=== PATIENT | female | born 1975 | race Caucasian/White ===

== ENCOUNTER 2017-03-27 11:52 | Emergency (ER) | payer OTHER ==
[2017-03-27 12:08] VITALS: BP 102/65
--- NOTE | 2017-03-27 12:21 | UC ---
Skin Complaint HPI - HPI Summary HPI Summary: contusion and redness on right hip after a bug bite, also c/o some fatigue and body aches----no know tick bite no evidence of tick bite ---no fevers - History of Current Complaint Chief Complaint: UCGeneralIllness Time Seen by Provider: 03/27/17 12:15 Stated Complaint: SKIN COMPLAINT-BULLSEYE Hx Obtained From: Patient Hx Last Menstrual Period: 03/23/17 ?: No Onset/Duration: Sudden Onset, Lasting Days - 7, Still Present Timing: Constant Onset Severity: Mild Current Severity: Mild Pain Intensity: 0 Location: Discrete Character: Pruritus Alleviating: Cold Compresses Associated Signs & Symptoms: Positive: Bruising - and itching Related History: Insect Bite/Sting - Allergy/Home Medications Allergies/Adverse Reactions: Allergies Allergy/AdvReac Type Severity Reaction Status Date / Time No Known Allergies Allergy Verified 03/27/17 12:08 Home Medications: Home Medications ALPRAZolam TAB* [Xanax TAB*] 0.25 mg PO TID PRN 03/27/17 [History Confirmed ] Citalopram TAB* [CeleXA TAB*] 20 mg PO DAILY 03/27/17 [History Confirmed ] busPIRone TAB* [Buspar TAB *] 15 mg PO DAILY 03/27/17 [History Confirmed ] Review of Systems Constitutional: Negative Skin: Negative Eyes: Negative ENT: Negative Respiratory: Negative Cardiovascular: Negative Gastrointestinal: Negative Genitourinary: Negative Motor: Negative Neurovascular: Negative Musculoskeletal: Negative Neurological: Negative Psychological: Negative All Other Systems Reviewed And Are Negative: Yes PMH/Surg Hx/FS Hx/Imm Hx Previously Healthy: No Psychological History: Anxiety - Surgical History Surgical History: None Surgery Procedure, Year, and Place: 06/22/11 Rt PARTIAL MMT--REPAIR RIGHT KNEE. HAMMER TOE ARTHROSCOPY-TOES 2-4 RIGHT - Family History Known Family History: Positive: None - Social History Occupation: Employed Full-time Lives: With Family Alcohol Use: Daily Alcohol Amount: 1 beer Substance Use Type: None Smoking Status (MU): Heavy Every Day Tobacco Smoker Type: Cigarettes Amount Used/How Often: 1 ppd Physical Exam Triage Information Reviewed: Yes Appearance: Well-Appearing, No Pain Distress, Well-Nourished Vital Signs: Initial Vital Signs Temp 98 F 03/27/17 12:03 Pulse 64 03/27/17 12:03 Resp 16 03/27/17 12:03 BP 102/65 03/27/17 12:03 Pulse Ox 99 03/27/17 12:03 Vital Signs Reviewed: Yes Eye Exam: Normal Eyes: Positive: Conjunctiva Clear ENT Exam: Normal ENT: Positive: Normal ENT inspection, Hearing grossly normal. Negative: Nasal congestion, Nasal drainage, Trismus, Muffled/hoarse voice Dental Exam: Normal Neck exam: Normal Neck: Positive: Supple, Nontender, No Lymphadenopathy Respiratory Exam: Normal Respiratory: Positive: Chest non-tender, Lungs clear, Normal breath sounds, No respiratory distress, No accessory muscle use Cardiovascular Exam: Normal Cardiovascular: Positive: RRR, No Murmur, Pulses Normal, Brisk Capillary Refill Musculoskeletal Exam: Normal Musculoskeletal: Positive: Strength Intact, ROM Intact, No Edema Neurological Exam: Normal Neurological: Positive: Alert, Muscle Tone Normal Psychological Exam: Normal Skin Exam: Other Skin: Positive: Other - bruising and erythema about 3 cm on right hip Course/Dx - Course Course Of Treatment: Lab studies, follow with pcp prn - Differential Diagnoses - Skin Complaint Differential Diagnoses: Abscess, Cellulitis, Impetigo - Diagnoses Provider Diagnoses: contusion, insect bite right hip Discharge - Discharge Plan Condition: Stable Disposition: HOME Patient Education Materials: Fatigue (ED) Referrals: Laly Cooley MD [Medical Doctor] - 1 Week Additional Instructions: A full workup for fatigue is a larger evaluation that Lyme . If this does not resolve please follow with Dr. Cooley for a full evaluation
== END 2017-03-27 12:54 | disposition home or self-care (01) ==
LOC: UCCORT 11:52
DX: S70.01XA Contusion of right hip, initial encounter (principal); S70.261A Insect bite (nonvenomous), right hip, initial encounter; W57.XXXA Bitten or stung by nonvenomous insect and other nonvenomous arthropods, initial encounter; Y93.9 Activity, unspecified; Y92.9 Unspecified place or not applicable; Y99.9 Unspecified external cause status; Z72.0 Tobacco use
CPT/HCPCS: 86618; 99211; G0463

== ENCOUNTER 2017-06-29 15:45 | Emergency (ER) | payer OTHER ==
[2017-06-29 16:25] VITALS: BP 128/74
--- NOTE | 2017-06-29 16:39 | ED ---
Syncope/Near Syncope - HPI Summary HPI Summary: 41 yr old female with the complaint of syncope. The patient states that she had just two drinks at a bar [place] night. She states this is nothing unusual for her, and she did not feel intoxicated. She states she began to suddenly feel very fatigued, her vision went black and she passed out in a chair at the bar. She states she has not felt well since then. She states she is under a lot of stress with finishing a master's progam in education at [employer], and she is also having relationship problems at home and recently . She denies chest pain, sob, palpitations. She has had feeling of fatigue and dizziness. - History Of Current Complaint Chief Complaint: UCGeneralIllness Time Seen by Provider: 06/29/17 16:20 - Allergies/Home Medications Allergies/Adverse Reactions: Allergies Allergy/AdvReac Type Severity Reaction Status Date / Time No Known Allergies Allergy Verified 06/29/17 16:25 PMH/Surg Hx/FS Hx/Imm Hx Cardiovascular History: Denies: Hx Pacemaker/ICD Sensory History: Denies: Hx Hearing Aid Psychiatric History: Denies: Hx Panic Disorder - Cancer History Hx Chemotherapy: No Hx Radiation Therapy: No - Surgical History Surgery Procedure, Year, and Place: 06/22/11 Rt PARTIAL MMT--REPAIR RIGHT KNEE. HAMMER TOE ARTHROSCOPY-TOES 2-4 RIGHT Infectious Disease History: No Infectious Disease History: Denies: History Other Infectious Disease, Traveled Outside the [place] in Last 30 Days - Family History Known Family History: Positive: None Family History: She denies a family history of congenital heart disease, valvular heart disease,Sudden in people under 50, seizure disorders. - Social History Alcohol Use: Daily Alcohol Amount: 1 beer Substance Use Type: Reports: None Smoking Status (MU): Heavy Every Day Tobacco Smoker Type: Cigarettes Amount Used/How Often: 1 ppd Review of Systems Positive: Fatigue Positive: Other - syncope Positive: Syncope All Other Systems Reviewed And Are Negative: Yes Physical Exam Triage Information Reviewed: Yes Vital Signs On Initial Exam: Initial Vitals Temp Pulse Resp BP Pulse Ox 97.2 F 79 18 128/74 100 06/29/17 16:18 06/29/17 16:18 06/29/17 16:18 06/29/17 16:18 06/29/17 16:18 Vital Signs Reviewed: Yes Appearance: Positive: Well-Appearing, No Pain Distress Skin: Positive: Warm, Skin Color Reflects Adequate Perfusion Head/Face: Positive: Normal Head/Face Inspection Eyes: Positive: EOMI Respiratory/Lung Sounds: Positive: Clear to Auscultation, Breath Sounds Present Cardiovascular: Positive: RRR. Negative: Murmur Abdomen Description: Positive: Nontender Musculoskeletal: Positive: Strength/ROM Intact. Negative: Edema Left, Edema Right Neurological: Positive: Sensory/Motor Intact, Alert, Oriented to Person Place, Time, CN Intact II-III Psychiatric: Positive: Normal - [place] Coma Scale Best Eye Response: 4 - Spontaneous Best Motor Response: 6 - Obeys Commands Best Verbal Response: 5 - Oriented Diagnostics - Vital Signs Vital Signs Temp Pulse Resp BP Pulse Ox 06/29/17 16:18 97.2 F 79 18 128/74 100 - Laboratory Lab Statement: Any lab studies that have been ordered have been reviewed, and results considered in the medical decision making process. Course/Dx Course Of Treatment: 41 yr old with syncopal episode and feeling fatigued and dizzy. EKG ok. recommend transport by ambulance for further work up in ER. She was told she should not drive until she gets further work up. She is signing out AMA. - Diagnoses Provider Diagnoses: Syncope Discharge - Discharge Plan Condition: Good Disposition: AGAINST MEDICAL ADVICE Referrals: Rhona Cooley MD [Primary Care Provider] -
== END 2017-06-29 16:55 | disposition left against medical advice (07) ==
LOC: UCCORT 15:45
DX: R55 Syncope and collapse (principal); R53.83 Other fatigue; F17.210 Nicotine dependence, cigarettes, uncomplicated
CPT/HCPCS: 93005; 99212; G0463

== ENCOUNTER 2018-02-15 13:37 | Emergency (ER) | payer OTHER ==
--- NOTE | 2018-02-15 13:53 | UC ---
Lower Extremity/Ankle HPI - HPI Summary HPI Summary: Patient states that she was at [place] when she stepped off the trail to allow children to pass. Upon stepping off the trail, she rolled her right ankle. This occurred just prior to arrival. She had an Noble wrap which she applied. She is complaining of pain and swelling to the outside of her right ankle. Occured at work. Took motrin [employer]. - History of Current Complaint Stated Complaint: RT ANKLE INJ Time Seen by Provider: 02/15/18 13:43 Hx Obtained From: Patient Hx Last Menstrual Period: 06/13/17 Onset/Duration: Sudden Onset Aggravating Factor(s): Standing, Ambulation Alleviating Factor(s): Elevation Able to Bear Weight: Yes Related History: Occupational Injury - Allergies/Home Medications Allergies/Adverse Reactions: Allergies Allergy/AdvReac Type Severity Reaction Status Date / Time No Known Allergies Allergy Verified 06/29/17 16:25 PMH/Surg Hx/FS Hx/Imm Hx Psychological History: Anxiety, Depression - Surgical History Surgical History: None Surgery Procedure, Year, and Place: 06/22/11 Rt PARTIAL MMT--REPAIR RIGHT KNEE. HAMMER TOE ARTHROSCOPY-TOES 2-4 RIGHT - Family History Known Family History: Positive: None Family History: She denies a family history of congenital heart disease, valvular heart disease,Sudden in people under 50, seizure disorders. - Social History Occupation: Employed Full-time Lives: With Family Alcohol Use: Daily Alcohol Amount: 1 beer Substance Use Type: None Smoking Status (MU): Heavy Every Day Tobacco Smoker Type: Cigarettes Amount Used/How Often: 1 ppd - Immunization History Most Recent Influenza Vaccination: NOT CURRENT Vaccination Up to Date: Yes Review of Systems Constitutional: Negative Skin: Negative Eyes: Negative ENT: Negative Respiratory: Negative Cardiovascular: Negative Gastrointestinal: Negative Genitourinary: Negative Motor: Negative Neurovascular: Negative Musculoskeletal: Other: - pain/swelling R ankle Neurological: Negative Psychological: Negative Is Patient Immunocompromised?: No All Other Systems Reviewed And Are Negative: Yes Physical Exam Triage Information Reviewed: Yes Appearance: Well-Appearing Vital Signs Reviewed: Yes Eyes: Positive: Conjunctiva Clear ENT: Positive: Normal ENT inspection Neck: Positive: Supple, Nontender Respiratory: Positive: Lungs clear, Normal breath sounds Cardiovascular: Positive: RRR, No Murmur Abdomen Description: Positive: Nontender, No Organomegaly, Soft Bowel Sounds: Positive: Present Musculoskeletal: Positive: Other: - RLE= hip, knee, Achilles are atraumatic. Right ankle has mild swelling to the lateral malleolus along with tenderness to palpation. The rest the ankle is nontender. Foot is nontender and has full sensorivascular motor function. Neurological: Positive: Alert Psychological: Positive: Age Appropriate Behavior Skin Exam: Normal Diagnostics - Radiology No standard instances Radiology Interpretation Completed By: Radiologist - Suggestion of talocrural joint effusion. Subtle grossly nondisplaced avulsion fracture noted at the caudal margin of the lateral malleolus reference the AP view. Congruent ankle mortise. Mild nonfocal soft tissue swelling. Lower Extremity Course/Dx - Course Course Of Treatment: No dislocation or concern for infection. Patient has a nondisplaced distal fibular fracture on x-ray. We'll splint and refer to orthopedics. - Differential Dx/Diagnosis Provider Diagnoses: Nondisplaced fracture right distal fibula. Discharge - Sign-Out/Discharge Documenting (check all that apply): Patient Departure - Discharge Plan Condition: Stable Disposition: HOME Patient Education Materials: Ankle Fracture (DC) Forms: *Work Release Referrals: Rhona Cooley MD [Primary Care Provider] - If Needed Sven Cardenas MD [Medical Doctor] - As Soon As Possible Additional Instructions: SPLINT UNTIL CLEARED - Billing Disposition and Condition Condition: STABLE Disposition: Home
[2018-02-15 13:55] VITALS: BP 118/63
--- NOTE | 2018-02-15 14:20 | RAD ---
Indication: Lateral and medial RIGHT ankle pain following rolling injury. Comparison: No relevant prior exams available on the [facility] for comparison. Technique: AP, mortise, and lateral views RIGHT ankle. REPORT AND IMPRESSION: #. Suggestion of talocrural joint effusion. Subtle grossly nondisplaced avulsion fracture noted at the caudal margin of the lateral malleolus reference the AP view. Congruent ankle mortise. Mild nonfocal soft tissue swelling.
== END 2018-02-15 15:12 | disposition home or self-care (01) ==
LOC: UCCORT 13:37
DX: S82.831A Other fracture of upper and lower end of right fibula, initial encounter for closed fracture (principal); F17.210 Nicotine dependence, cigarettes, uncomplicated; X50.9XXA Other and unspecified overexertion or strenuous movements or postures, initial encounter; Y92.89 Other specified places as the place of occurrence of the external cause; Y99.0 Civilian activity done for income or pay
CPT/HCPCS: 99213; G0463

== ENCOUNTER 2019-03-14 10:10 | Emergency (ER) | payer BC, OTHER ==
[2019-03-14 11:15] VITALS: BP 110/68
--- NOTE | 2019-03-14 11:20 | UC ---
UC General HPI - HPI Summary HPI Summary: 43-year-old female who started having some left foot arch pain which progressed to include the left ankle with mild swelling. She states she had one episode of burning on urination over the weekend. She states she now has body aches no fever or chills. She does work at [employer] however states that she checks herself twice a day for ticks, she uses permethrin spray on her clothing. She has no history of a tick bite to her knowledge. - History of Current Complaint Chief Complaint: UCLowerExtremity Stated Complaint: FEVER, ACHY BODY, LEFT ANKLE SWELLING Time Seen by Provider: 03/14/19 11:06 Hx Obtained From: Patient Hx Last Menstrual Period: 03/05/19 Onset/Duration: Gradual Onset, Still Present Onset Severity: Mild Current Severity: Moderate Pain Intensity: 7 Associated Signs & Symptoms: Positive: Other - Body aches, had burning on urination one time over the weekend, this point she had diarrhea twice. Denies any rashes or tick bites. - Allergy/Home Medications Allergies/Adverse Reactions: Allergies Allergy/AdvReac Type Severity Reaction Status Date / Time No Known Allergies Allergy Verified 03/14/19 11:05 Home Medications: Home Medications Arnica Flower Extract [Arnica Lg] 1 gm TOPICAL ONCE 03/14/19 [History Confirmed 03/14/19] PMH/Surg Hx/FS Hx/Imm Hx Previously Healthy: Yes - Surgical History Surgical History: None Surgery Procedure, Year, and Place: 06/22/11 Rt PARTIAL MMT--REPAIR RIGHT KNEE. HAMMER TOE ARTHROSCOPY-TOES 2-4 RIGHT, cholecystectomy, right ankle fx - Family History Known Family History: Positive: None, Non-Contributory Family History: She denies a family history of congenital heart disease, valvular heart disease,Sudden in people under 50, seizure disorders. - Social History Alcohol Use: Weekly Alcohol Amount: 1 beer Substance Use Type: Synthetic Drugs Substance Use Comment - Amount & Last Used: THC Smoking Status (MU): Heavy Every Day Tobacco Smoker Type: Cigarettes Amount Used/How Often: 1 ppd - Immunization History Most Recent Influenza Vaccination: NOT CURRENT Vaccination Up to Date: Yes Review of Systems All Other Systems Reviewed And Are Negative: Yes Constitutional: Positive: Negative Skin: Positive: Negative Genitourinary: Positive: Other - Burning on urination one time over the weekend. Motor: Positive: Other - Pain and mild swelling to the medial aspect of left arch of foot and ankle. Patient denies any injury. Is Patient Immunocompromised?: No Physical Exam Triage Information Reviewed: Yes Appearance: Well-Appearing, No Pain Distress, Well-Nourished Vital Signs: Initial Vital Signs Temp 98.5 F 03/14/19 11:08 Pulse 68 03/14/19 11:08 Resp 20 03/14/19 11:08 BP 110/68 03/14/19 11:08 Pulse Ox 97 03/14/19 11:08 Vital Signs Reviewed: Yes Eyes: Positive: Conjunctiva Clear ENT: Positive: Hearing grossly normal, Pharynx normal, TMs normal, Uvula midline Neck: Positive: Supple, Nontender, No Lymphadenopathy Respiratory: Positive: Lungs clear, Normal breath sounds, No respiratory distress, No accessory muscle use Cardiovascular: Positive: RRR, No Murmur, Pulses Normal, Brisk Capillary Refill Abdomen Description: Positive: Nontender, No Organomegaly, Soft. Negative: CVA Tenderness (R), CVA Tenderness (L) Bowel Sounds: Positive: Present Musculoskeletal: Positive: Strength Intact, ROM Intact, Other: - Mild pain on palpation arch of left foot with mild swelling of the ankle and pain on palpation. Achilles is intact. Good peripheral pulses neuro sensation and capillary refill. Neurological: Positive: Alert, Muscle Tone Normal Psychological Exam: Normal Skin Exam: Normal Course/Dx - Course Course Of Treatment: X-ray left ankle: BONE DENSITY: Normal. BONES: There is no displaced fracture. JOINTS: There is no arthropathy. ALIGNMENT: There is no dislocation. SOFT TISSUES: Unremarkable. OTHER FINDINGS: None. IMPRESSION: NO ACUTE OSSEOUS INJURY. IF SYMPTOMS PERSIST, RECOMMEND REPEAT IMAGING. Urinalysis: Negative Lyme titers drawn. At this point in time I think the patient may have Lyme disease and I'm going to treat her with doxycycline pending the results of the Lyme titers. She will follow-up with her primary care provider before the 2 weeks of doxycycline is complete. She is to go to the emergency room for any worsening symptoms. - Diagnoses Provider Diagnosis: Lyme disease Discharge - Sign-Out/Discharge Documenting (check all that apply): Patient Departure All imaging exams completed and their final reports reviewed: Yes - Discharge Plan Condition: Fair Disposition: HOME Prescriptions: DOXYcycline CAP(*) [DOXYcycline 100MG CAP(*)] 100 mg PO BID 14 Days #28 cap Patient Education Materials: Lyme Disease (ED) Referrals: Rhona Cooley MD [Primary Care Provider] - Additional Instructions: No antacids, multivitamins or dairy products 2 hours before you take doxycycline and 2 hours after you take doxycycline however be sure and take it with food. You may wait until the titer results come back before starting it. If you have not heard the results by Thursday call here for them. Definite follow-up with your primary care provider in 2 or 3 days if no improvement. If he start the doxycycline, follow-up with her primary care provider before you finish the prescription. - Billing Disposition and Condition Condition: FAIR Disposition: Home - Attestation Statements Provider Attestation: This patient was not seen by me. I was available for consult. RAYMOND
== END 2019-03-14 12:14 | disposition home or self-care (01) ==
LOC: UCCORT 10:10
DX: A69.20 Lyme disease, unspecified (principal); F17.210 Nicotine dependence, cigarettes, uncomplicated
CPT/HCPCS: 36415; 81003; 86618; 99212; G0463

== ENCOUNTER 2019-08-24 14:51 | Emergency (ER) | payer SELFPAY ==
[2019-08-24] MEDS ORDERED: Naproxen TAB* 250 MG PO ONE (15:00)
[2019-08-24 15:08] VITALS: BP 135/84
--- NOTE | 2019-08-24 15:28 | UC ---
Elbow Pain - HPI Summary HPI Summary: PATIENT WORKS FOR [employer]. WAS AT THE [employer] WITH SOME S[employer]-GRADE STUDENTS ON A FIELD TRIP. SHE WAS DE-ESCALATING AN ANGRY STUDENT WHO THEN STRUCK HER RIGHT ELBOW WITH A RACQUETBALL RACQUET. PATIENT IS PRESENTING IN AN EXTREME AMOUNT OF DISCOMFORT. IS REFUSING TO BEND AT THE ELBOW AT ALL. HOLDING HER RIGHT ARM IN FULL EXTENSION. RIGHT HAND DOMINANT. - History of Current Complaint Stated Complaint: RT ELBOW INJURY Time Seen by Provider: 08/24/19 14:58 Hx Obtained From: Patient Hx Last Menstrual Period: states "just finished" Onset/Duration: Minutes Severity Initially: Moderate Severity Currently: Moderate Pain Intensity: 8 Pain Scale Used: 0-10 Numeric Location Of Pain: Is Discrete @ - RIGHT ELBOW Character: Sharp Aggravating Factor(s): Movement Alleviating Factor(s): Nothing Associated Signs And Symptoms: Positive: Bruising - Allergies/Home Medications Allergies/Adverse Reactions: Allergies Allergy/AdvReac Type Severity Reaction Status Date / Time No Known Allergies Allergy Verified 08/24/19 15:05 PMH/Surg Hx/FS Hx/Imm Hx Psychological History: Anxiety, Depression - Surgical History Surgical History: None Surgery Procedure, Year, and Place: 06/22/11 Rt PARTIAL MMT--REPAIR RIGHT KNEE. HAMMER TOE ARTHROSCOPY-TOES 2-4 RIGHT, cholecystectomy, right ankle fx - Family History Known Family History: Positive: None, Non-Contributory Family History: She denies a family history of congenital heart disease, valvular heart disease,Sudden in people under 50, seizure disorders. - Social History Alcohol Use: Weekly Alcohol Amount: 1 beer Substance Use Type: None Substance Use Comment - Amount & Last Used: THC Smoking Status (MU): Heavy Every Day Tobacco Smoker Type: Cigarettes Amount Used/How Often: 1 ppd - Immunization History Most Recent Influenza Vaccination: NOT CURRENT Vaccination Up to Date: Yes Review of Systems All Other Systems Reviewed And Are Negative: Yes Constitutional: Positive: Negative Skin: Positive: Bruising Respiratory: Positive: Negative Cardiovascular: Positive: Negative Gastrointestinal: Positive: Negative Musculoskeletal: Positive: Arthralgia, Decreased ROM Physical Exam Triage Information Reviewed: Yes Appearance: Well-Nourished, Pain Distress - MODERATE Vital Signs: Initial Vital Signs Temp 99.2 F 08/24/19 15:06 Pulse 88 08/24/19 15:06 Resp 18 08/24/19 15:06 BP 135/84 08/24/19 15:06 Pulse Ox 98 08/24/19 15:06 Vital Signs Reviewed: Yes Eyes: Positive: Conjunctiva Clear ENT: Positive: Hearing grossly normal Neck: Positive: Supple Respiratory: Positive: No respiratory distress, No accessory muscle use Cardiovascular: Positive: Pulses Normal Musculoskeletal: Positive: ROM Limited @ - RIGHT ELBOW - PT WILL NOT FLEX AT ELBOW - HOLDING ARM IN FULL EXTENSION, Other: - TTP LATERAL EPICONDYLE Neurological: Positive: Alert Psychological: Positive: Age Appropriate Behavior Skin: Positive: Other - BRUISING RIGHT LATERAL ELBOW Diagnostics - Radiology RIGHT ELBOW XRAYS Radiology Interpretation Completed By: Radiologist Summary of Radiographic Findings: No fracture of the right elbow is noted. Elbow Pain Course/Dx - Course Course Of Treatment: X-RAY NEGATIVE FOR FRACTURE OR DISLOCATION. CA WRAP AND SLING APPLIED BY RN TO HELP WITH COMPRESSION AND SUPPORT. OTC MEDICATIONS NEEDED FOR DISCOMFORT. PATIENT ADVISED TO GO THROUGH SLOW RANGE OF MOTION EXERCISES ABLE TO PREVENT STIFFENING UP. - Differential Dx/Diagnosis Provider Diagnosis: Contusion of right elbow Discharge ED - Sign-Out/Discharge Documenting (check all that apply): Patient Departure All imaging exams completed and their final reports reviewed: Yes - Discharge Plan Condition: Stable Disposition: HOME Patient Education Materials: Contusion in Adults (ED) Referrals: Rhona Cooley MD [Primary Care Provider] - If Needed Holland Haddad MD [Medical Doctor] - If Needed Additional Instructions: XRAY TODAY NEGATIVE FOR FRACTURE OR DISLOCATION. YOUR SYMPTOMS SHOULD IMPROVE SIGNIFICANTLY OVER THE NEXT 1-2 WEEKS. IF YOU DO NOT IMPROVE EXPECTED FOLLOW- UP WITH YOUR PCP OR ORTHO. YOU MAY BENEFIT FROM REPEAT IMAGING AT THAT TIME. OTC IBUPROFEN OR ALEVE NEEDED FOR DISCOMFORT. REST, ICE, COMPRESS. CA WRAP AND SLING NEEDED FOR SYMPTOM RELIEF. BE SURE TO GO THROUGH SLOW RANGE OF MOTION EXERCISES DAILY YOU ARE ABLE TO PREVENT STIFFENING UP AND MAKING THE DISCOMFORT WORSE. - Billing Disposition and Condition Condition: STABLE Disposition: Home
== END 2019-08-24 16:00 | disposition home or self-care (01) ==
LOC: UCEAST 14:51
DX: S50.01XA Contusion of right elbow, initial encounter (principal); F17.210 Nicotine dependence, cigarettes, uncomplicated; W21.19XA Struck by other bat, racquet or club, initial encounter; Y93.73 Activity, racquet and hand sports; Y92.89 Other specified places as the place of occurrence of the external cause; Y99.0 Civilian activity done for income or pay
CPT/HCPCS: 99212; A9270-GY; G0463